=== PATIENT | male | born 1995 | race Caucasian/White ===

== ENCOUNTER → 2025-01-09 08:12 | Outpatient (CLI) | payer OTHER, SELFPAY ==
--- NOTE | 2025-01-09 08:16 | DI.RAD.S_ITS ---
PROCEDURE: FL ARTHROGRAM SHOULDER RT INDICATIONS: dislocation persistent pain COMPARISON: None. TECHNIQUE: The indications, alternatives, benefits, risks, and complications of the procedure were explained to the patient. Written informed consent was obtained and placed in the chart. The shoulder was examined fluoroscopically and a site for needle placement chosen for entry into the glenohumeral joint from an anterior approach. The skin was prepped and draped in a sterile fashion, and 1% lidocaine infiltrated from skin down to joint capsule. A spinal needle was inserted into the glenohumeral joint, and a small amount of iodinated contrast media injected to confirm intra-articular placement of the needle tip. This was followed by approximately 12 mL dilute solution of a gadolinium containing MR contrast agent. The needle was removed and a dressing was applied. The patient was given postprocedural instructions and sent to the MR suite for MR imaging. FINDINGS: A single fluoroscopic spot image demonstrates intra-articular location of injected iodinated contrast. IMPRESSION: Successful fluoroscopically guided administration of dilute Gadolinium solution into the shoulder joint for MR arthrogram. Dictated by: Drew Wagner M.D. on 01/09/2025 at 13:26 Approved by: Drew Wagner M.D. on 01/09/2025 at 13:26
--- NOTE | 2025-01-09 08:52 | DI.MRI.S_ITS ---
PROCEDURE: MR SHOULDER RT W CON INDICATIONS: dislocation persistent pain TECHNIQUE: After the administration of 12 mL of dilute intra-articular Gadolinium contrast, oblique coronal T1 and T2 spin echo with fat saturation, oblique sagittal T1 spin echo with and without fat saturation, oblique sagittal T2 fast spin echo with fat saturation, axial T1 spin echo with fat saturation through the shoulder. COMPARISON: None. FINDINGS: Image quality: Excellent. Rotator cuff: The supraspinatus, infraspinatus, teres minor, and subscapularis tendons are intact. No significant rotator cuff muscle atrophy. Bones and bursae: No acute trabecular bone injury or fracture. No significant Hill-Sachs lesion. No focal glenohumeral cartilage defect. Acromioclavicular joint is normally aligned. Small amounts of noncommunicating subacromial/subdeltoid bursal fluid. No intra-articular loose body. Capsule and soft tissues: No displaced labral tear. Proximal biceps long head tendon is intact. Glenohumeral ligaments are intact. IMPRESSION: 1. No acute trabecular bone injury. No significant rotator cuff tendon tear. Intact labrum and proximal biceps long head tendon. 2. Small subacromial/subdeltoid bursal effusion or mild bursitis. Approved by: Laurent Holley M.D. on 01/09/2025 at 15:45
== END ==
PROVIDERS: Referring Provider Internal Medicine; Visit Provider Internal Medicine
DX: S40.911A Unspecified superficial injury of right shoulder, initial encounter (principal); X58.XXXA Exposure to other specified factors, initial encounter
CPT/HCPCS: 23350; 73040; 73222; A9579; Q9967

== ENCOUNTER → 2025-01-16 08:38 | Outpatient (CLI) | payer OTHER, SELFPAY ==
--- NOTE | 2025-01-16 08:40 | DI.RAD.S_ITS ---
PROCEDURE: FL JOINT INJECTION LARGE RT shoulder INDICATIONS: Right shoulder pain COMPARISON: None. TECHNIQUE: The indications, alternatives, benefits, risks, and complications of the procedure were explained to the patient. Written informed consent was obtained and placed in the chart. The patient was placed in an appropriate position on the fluoroscopy table, and a site was chosen for percutaneous access under fluoroscopic guidance. The site was prepped and draped in a sterile fashion. Local anesthetic was administered using a 1% lidocaine solution. A hypodermic or spinal needle was then used to access the symptomatic joint. Intra-articular location of the needle tip was confirmed by injecting a small amount of contrast, followed by steroid administration. The needle was then withdrawn, and a bandage applied to the puncture site. FINDINGS: Joint injected: Right glenohumeral joint Medications injected: 8 mL of 40 mg/mL Kenalog and 0.5% Ropivacaine mixture. Patient's pain before injection: 4 out of 10. Patient's pain after injection: 2 out of 10. Complications: None. IMPRESSION: Successful fluoroscopically guided administration of steroid and anaesthetic solution into the right glenohumeral joint. Dictated by: Carlos Enrique Perez M.D. on 01/17/2025 at 9:25 Approved by: Carlos Enrique Perez M.D. on 01/17/2025 at 9:27
[2025-01-16] MEDS: LIDOCAINE 1% 20 ML INJ (10:05)
[2025-01-16] MEDS: TRIAMCINOLONE 40 MG/ML VIAL INTRA-ARTI (10:05)
[2025-01-16] MEDS: ROPIVACAINE 0.5% PF 5 MG/ML 20ML VIAL 20 ML INJ (10:05)
== END ==
LOC: RAD 08:39
PROVIDERS: Referring Provider Radiology Diagnostic Radiology; Visit Provider Radiology Diagnostic Radiology
DX: M25.511 Pain in right shoulder (principal)
CPT/HCPCS: 20610; 77002

== ENCOUNTER 2025-03-22 09:49 | Emergency (ER) | payer OTHER, SELFPAY ==
[2025-03-22] VITALS (7 sets, daily range): BP systolic 127; BP diastolic 83; PULSE 82–95; RESP 14–23; TEMP 36.9; O2SAT 96–100; BMI 27.4
--- NOTE | 2025-03-22 10:21 | DI.RAD.S_ITS ---
PROCEDURE: XR CHEST 1V INDICATIONS: Shortness of breath TECHNIQUE: One view of the chest was acquired. COMPARISON: None. FINDINGS: Surgical changes and devices: None. Lungs and pleura: Lungs are clear. No pleural effusions or pneumothorax. Mediastinum: Mediastinal contours appear normal. Heart size is normal. Bones and chest wall: No suspicious bony lesions. Overlying soft tissues appear unremarkable. IMPRESSION: No acute cardiopulmonary abnormality is seen. Dictated by: Marielos Vieira MD, PhD on 03/22/2025 at 10:40 Approved by: Marielos Vieira MD, PhD on 03/22/2025 at 10:40
--- NOTE | 2025-03-22 10:52 | EKG_ITS ---
[address] [address] Test Date: 2025-03-22 Pat Name: Adam Traylor Department: Room: Gender: Male Die Inspector: GRIFFIN : 1995 Requested By: Order Number: [id number] Reading MD: Deven Frazier Measurements Intervals [place] Rate: 87 P: 72 DE: 132 QRS: 31 QRSD: 86 T: 29 QT: 342 QTc: 411 Interpretive Statements Normal sinus rhythm Electronically Signed On 03-23-2025 13:45:26 PDT by Deven Frazier
[2025-03-22 10:54] LABS: Add Manual Diff / Slide Review NO; Hematocrit 41.0 % (41-53); Hemoglobin 14.9 g/dL (13.5-17.5); Lymphocytes Absolute Auto 1200 /uL (1100-4500); Mean Corpuscular HGB Conc 36.5 % (30-36); Mean Corpuscular Hemoglobin 32.1 PG (26-34); Mean Corpuscular Volume 87.9 fL (80-100); Platelet Count 238 X10^3/uL (150-400)
[2025-03-22 10:59] LABS: INR 1.2 (0.9-1.3); Prothrombin Time 13.3 SECONDS (9.4-12.5)
[2025-03-22 11:03] LABS: Alanine Aminotransferase 21 IU/L (<50); Albumin 5.1 g/dL (3.5-5.0); Albumin Globulin Ratio 1.2 (1.0-2.8); Alkaline Phosphatase 59 U/L (38-126); Blood Urea Nitrogen 11 mg/dL (9-20); Calcium 9.4 mg/dL (8.4-10.2); Carbon Dioxide 28 mmol/L (22-32); Chloride 102 mmol/L (98-107); Estimated Glomerular Filt Rate > 60 mL/min (>60); Globulin 4.3 g/dL (1.7-4.1); Glucose 92 mg/dL (70-99); HEMOLYSIS 24 (0-50); Potassium 4.0 mmol/L (3.4-5.1); Sodium 141 mmol/L (137-145); Total Protein 9.4 g/dL (6.3-8.2)
[2025-03-22 11:04] LABS: Lactate (Lactic Acid) 1.0 mmol/L (0.7-2.1)
[2025-03-22 11:15] LABS: NT-proBNP (BNP-Adult 18+) < 20 pg/mL (<125); Troponin I < 0.012 ng/mL (0.01-0.034)
--- NOTE | 2025-03-22 13:06 | ED.CHESTPAIN ---
HPI - Chest Pain General Chief Complaint: Shortness of Breath/Dyspnea Stated Complaint: SOB had shoulder surgery thursday joint pain Time Seen by Provider: 03/22/25 13:02 History of Present Illness HPI narrative: Patient recently had right upper extremity surgery. Now complaints couple of days of chest soreness burning sensation pain with deep breath. Also has left upper extremity discomfort and bilateral lower extremity discomfort. No prior history of heart attack strokes diabetes or blood clots in legs or lungs. Related Data Allergies Allergy/AdvReac Type Severity Reaction Status Date / Time No Known Drug Allergies Allergy Unverified 01/09/25 08:57 Review of Systems Review of Systems Narrative: GENERAL: Negative chills, fatigue, malaise, fever, sweats. HEENT: Negative sinus pain, ear pain, sore throat RESPIRATORY: Positive dyspnea, negative cough CARDIOVASCULAR: Positive chest pain, negative palpitations GASTROINTESTINAL: Negative vomiting, nausea, abdominal pain : Negative dysuria, frequency, hematuria MUSCULOSKELETAL: Positive muscle or bony pain SKIN: Negative rash, skin lesions NEUROLOGIC: Negative weakness, numbness ROS Unobtainable: All systems reviewed & are unremarkable except as noted in HPI and below Patient History Social History Smoking Status: Never smoker Smoking Status: Never smoker Exam Narrative Exam Narrative: GENERAL: in no distress, not toxic not dyspneic HEAD: Normocephalic. EYES: Pupils equal round ENT: Mucous membranes moist. NECK: Trachea midline. CARDIOVASCULAR: Regular rate and rhythm RESPIRATORY: Clear to auscultation. Breath sounds equal bilaterally. No wheezes, rales, or rhonchi. Reproducible sternal tenderness on palpation deep breath GASTROINTESTINAL: Abdomen soft, non-tender EXTREMITIES: No gross deformities. No palpable cords nontender bilateral calves and left biceps and forearm. BACK: No flank tenderness. NEURO: AOx4. Clear speech SKIN: Warm and dry PSYCH: Not anxious, is cooperative Initial Vital Signs Initial Vital Signs: Vital Signs Temperature 98.4 F 03/22/25 10:11 Pulse Rate 94 H 03/22/25 10:11 Respiratory Rate 16 03/22/25 10:11 Blood Pressure 127/83 03/22/25 10:11 Pulse Oximetry 96 03/22/25 10:11 Oxygen Delivery Method Room Air 03/22/25 10:11 Scores HEART Score Heart Score history: Slightly Suspicious Heart Score EKG: Normal Heart Score Age: < 45 years old Heart Score risk factors: No known risk factors Heart Score troponin: < or = to normal limit Heart Score Total: 0 Course Orders Ordered: Discontinued Medications Sodium Chloride (Normal Saline 0.9%) 1,000 mls @ 1,000 mls/hr IV BOLUS ONE Stop: 03/22/25 14:04 Last Infusion: 03/22/25 16:27 Dose: Infused Documented By: Admin: 03/22/25 13:40 Dose: 1,000 mls/hr Documented By: SB Ketorolac Tromethamine (Ketorolac 30 Mg/Ml Vial) 15 mg IV NOW ONE Stop: 03/22/25 15:47 Last Admin: 03/22/25 16:14 Dose: 15 mg Documented By: RB Vital Signs Vital signs: Vital Signs - 8 hr 03/22/25 10:11 03/22/25 13:34 03/22/25 14:00 Temperature 98.4 F Pulse Rate 94 H 82 88 Respiratory Rate 16 23 Blood Pressure 127/83 Pulse Oximetry 96 100 98 Oxygen Delivery Method Room Air 03/22/25 14:30 03/22/25 15:00 03/22/25 15:30 Temperature Pulse Rate 90 95 H 89 Respiratory Rate 23 14 21 Blood Pressure Pulse Oximetry 98 99 98 Oxygen Delivery Method 03/22/25 16:00 Temperature Pulse Rate 89 Respiratory Rate 17 Blood Pressure Pulse Oximetry 98 Oxygen Delivery Method MDM - Chest Pain Lab Data 03/22/25 10:40 03/22/25 10:40 Labs: Lab Results 03/22/25 Range/Units 10:40 WBC 5.5 (4.5-11.0) X10^3/uL RBC 4.66 (4.5-5.9) X10^6/uL Hgb 14.9 (13.5-17.5) g/dL Hct 41.0 (41-53) % MCV 87.9 (80-100) fL MCH 32.1 (26-34) PG MCHC 36.5 H (30-36) % RDW 12.6 (11.6-14.8) % Plt Count 238 (150-400) X10^3/uL Neut % (Auto) 68.8 (50-75) % Lymph % (Auto) 22.1 L (25-40) % [place] % (Auto) 7.6 (3-14) % Eos % (Auto) 1.0 L (2-4) % Baso % (Auto) 0.5 (0-2) % Neut # (Auto) 3800 (6075-5389) /uL Lymph # (Auto) 1200 (3500-5482) /uL [place] # (Auto) 400 (0-900) /uL Eos # (Auto) 100 (0-450) /uL Baso # (Auto) 0 (0-100) /uL PT 13.3 H (9.4-12.5) SECONDS INR 1.2 (0.9-1.3) Sodium 141 (137-145) mmol/L Potassium 4.0 (3.4-5.1) mmol/L Chloride 102 (98-107) mmol/L Carbon Dioxide 28 (22-32) mmol/L BUN 11 (9-20) mg/dL Creatinine 1.04 (0.66-1.25) mg/dL Estimated GFR > 60 (>60) mL/min BUN/Creatinine Ratio 10.6 (6-22) Glucose 92 (70-99) mg/dL Lactate 1.0 (0.7-2.1) mmol/L Calcium 9.4 (8.4-10.2) mg/dL Total Bilirubin 1.1 (0.2-1.3) mg/dL AST 29 (17-59) IU/L ALT 21 (<50) IU/L Alkaline Phosphatase 59 (38-126) U/L Troponin I < 0.012 (0.01-0.034) ng/mL NT-Pro-B Natriuret Pep < 20 (<125) pg/mL Total Protein 9.4 H (6.3-8.2) g/dL Albumin 5.1 H (3.5-5.0) g/dL Globulin 4.3 H (1.7-4.1) g/dL Albumin/Globulin Ratio 1.2 (1.0-2.8) Imaging Data Extremity x-ray #1: Radiologist's Impression: [address] [address] Ultrasound Report Signed Patient: Adam Traylor MR#: [id number] : 1995 Acct:[id number] Age/Sex: 29 / M Date of Service: 03/22/25 Loc: ED Accession Number: [id number] Procedure: US periph venous low extrem bi Ordering Provider: Kel Weiss MD PROCEDURE: [facility] VENOUS LOW EXTREM BI INDICATIONS: Pain and swelling TECHNIQUE: Real-time imaging, as well as color and pulse Doppler interrogation, were performed of the deep veins of both legs from the inguinal ligament to the popliteal fossa, with documentation of the visualized calf veins. COMPARISON: None. FINDINGS: Right: The common femoral, femoral, popliteal, and the visualized calf veins are normally compressible, and free of intraluminal thrombus. Color and pulse Doppler demonstrate normal phasic intravascular flow. There is normal augmentation response to distal compression maneuver. Left: The common femoral, femoral, popliteal, and the visualized calf veins are normally compressible, and free of intraluminal thrombus. Color and pulse Doppler demonstrate normal phasic intravascular flow. There is normal augmentation response to distal compression maneuver. IMPRESSION: No findings of deep venous thrombosis in either lower extremity. Dictated by: Tony Murphy M.D. on 03/22/2025 at 13:41 Approved by: Tony Murphy M.D. on 03/22/2025 at 13:43 Extremity x-ray #2: Radiologist's Impression: [place] [address] Ultrasound Report Signed Patient: Adam Traylor MR#: [id number] : 1995 Acct:[id number] Age/Sex: 29 / M Date of Service: 03/22/25 Loc: ED Accession Number: [id number] Procedure: [facility] venous up extrem lt Ordering Provider: Kel Weiss MD PROCEDURE: [facility] VENOUS UP EXTREM LT INDICATIONS: Pain and swelling TECHNIQUE: Real-time imaging, as well as color and pulse Doppler interrogation, was performed of the upper extremity deep veins from the inferior neck to the antecubital fossa. COMPARISON: None. FINDINGS: The internal jugular vein, visualized portions of the subclavian vein, axillary, and brachial veins are free of intraluminal thrombus. Where physically possible, the veins are normally compressible. Color and pulse Doppler demonstrate normal intraluminal flow, with expected phasicity and pulsatility. Additional scanning of the cephalic and basilic veins of the superficial system demonstrates normal compressibility, without thrombus. IMPRESSION: No findings of upper extremity deep venous thrombosis can be seen. Dictated by: Tony Murphy M.D. on 03/22/2025 at 13:27 Approved by: Tony Murphy M.D. on 03/22/2025 at 13:32 Chest x-ray: Radiologist's Impression: [address] [address] XRay Report Signed Patient: Adam Traylor MR#: [id number] : 1995 Acct:[id number] Age/Sex: 29 / M Date of Service: 03/22/25 Loc: ED Accession Number: [id number] Procedure: XR chest 1V Ordering Provider: Kel Weiss MD PROCEDURE: XR CHEST 1V INDICATIONS: Shortness of breath TECHNIQUE: One view of the chest was acquired. COMPARISON: None. FINDINGS: Surgical changes and devices: None. Lungs and pleura: Lungs are clear. No pleural effusions or pneumothorax. Mediastinum: Mediastinal contours appear normal. Heart size is normal. Bones and chest wall: No suspicious bony lesions. Overlying soft tissues appear unremarkable. IMPRESSION: No acute cardiopulmonary abnormality is seen. Dictated by: Marielos Vieira MD, PhD on 03/22/2025 at 10:40 Approved by: Marielos Vieira MD, PhD on 03/22/2025 at 10:40 CT scan - chest: Radiologist's Impression: [address] [address] [address] Scan Report Signed Patient: Adam Traylor MR#: [id number] : 1995 Acct:[id number] Age/Sex: 29 / M Date of Service: 03/22/25 Loc: ED Accession Number: [id number] Procedure: CT angio chest PE protocol Ordering Provider: Kel Weiss MD PROCEDURE: CT ANGIO CHEST PE PROTOCOL INDICATIONS: Chest pain TECHNIQUE: After the administration of intravenous contrast, 2 mm thick sections acquired from the pulmonary apices to the posterior costophrenic angles. 3-dimensional maximum intensity projection (MIP) coronal and sagittal reformats were then acquired through the thorax. For radiation dose reduction, the following was used: automated exposure control, adjustment of mA and/or kV according to patient size. COMPARISON: None. FINDINGS: Image quality: Diagnostic. Pulmonary arteries: Pulmonary arteries are normal in size, and demonstrate no intraluminal filling defects to suggest central pulmonary embolism. Lower Neck: No enlarged lymph nodes. Thyroid: No thyroid nodules which require sonographic follow up, per consensus guidelines. Axillae: No enlarged lymph nodes. Chest Wall: Unremarkable. Bones: Unremarkable. Lungs and Pleura: No pneumothorax or pleural effusions. No consolidation or suspicious nodules. Heart: Heart size is normal. No pericardial effusion. Thoracic Vessels: No aortic aneurysm. Mediastinum and [place]: No enlarged lymph nodes. Esophagus: No wall thickening. No hiatal hernia. Upper Abdomen: Visualized upper abdomen solid organs and bowel loops appear normal. IMPRESSION: No pulmonary embolus. No acute cardiopulmonary process. Dictated by: Robb Rubin M.D. on 03/22/2025 at 13:28 Approved by: Robb Rubin M.D. on 03/22/2025 at 13:30 [facility] Narrative Medical decision making narrative: Patient recently had right upper extremity surgery. Now complaints couple of days of chest soreness burning sensation pain with deep breath. Also has left upper extremity discomfort and bilateral lower extremity discomfort. No prior history of heart attack strokes diabetes or blood clots in legs or lungs After history and exam, EKG CBC CMP chest x-ray troponin extremity Dopplers, CT chest [facility] Medical records reviewed: No recent visit for this complaint Differential considered: Includes but not limited to pneumothorax pleurisy costochondritis pulmonary embolism Lab Test results independently reviewed as above. Pertinent findings: Hemoglobin 14.9 INR 1.2 BUN 11 creatinine 1.04 troponin less than 0.012 BNP less than 20 Independently reviewed EKG normal sinus rhythm normal EKG rate 87 Imaging studies independently reviewed: Chest x-ray no acute finding CT chest no acute finding ultrasound of the limbs no DVT Consultations: None indicated at this time Re-evaluations: 4:08 p.m.. Updated patient results. They are reassuring results and on exam as well. Likely pleurisy/costochondritis causing his chest discomfort. Return precautions reviewed with patient. Not toxic at discharge. He desires discharge home. Discussion: Appropriate for discharge home. Exam is reassuring. Return precautions reviewed with patient. Symptoms likely costochondritis or pleurisy. Limb complaints nonspecific but results are reassuring. Return precautions reviewed and he desires discharge home. Patient has low heart score. No primary family history of coronary disease. No history of hypertension or hyperlipidemia. Diagnosis: Dyspnea Discharge Plan Departure Patient Disposition: Home Clinical Impression: Acute dyspnea Instructions: DI for Pleurisy, DI for Shortness of Breath Activity Restrictions/Additional Instructions: Your exam and laboratory studies imaging studies are reassuring. No new prescriptions are indicated. These symptoms may be effects left from your surgery from last week. Please do see your family doctor within a week for re-evaluation. Return if worse if any questions or concerns Referrals: ProviderOniel [Primary Care Provider, Family Practice] Stand Alone Forms: Patient Portal/API
[2025-03-22] MEDS: SODIUM CHLORIDE 0.9% 1,000 ML 1000 ML IV (13:40)
[2025-03-22] MEDS: KETOROLAC 30 MG/ML VIAL 15 MG IV (16:14)
== END 2025-03-22 16:29 | disposition home or self-care (01) ==
PROVIDERS: Emergency Provider Emergency Medicine
DX: R06.00 Dyspnea, unspecified (principal); R07.9 Chest pain, unspecified; M79.602 Pain in left arm; M79.605 Pain in left leg; M79.604 Pain in right leg; Z98.890 Other specified postprocedural states
CPT/HCPCS: 36415; 71045; 71275; 80053; 83605; 83880; 84484; 85025; 85610; 93005; 93970; 93971; 96361; 96374; 99284; J1885; Q9967

== ENCOUNTER → 2025-05-29 07:44 | Outpatient (CLI) | payer OTHER, SELFPAY ==
--- NOTE | 2025-05-29 07:46 | DI.MRI.S_ITS ---
PROCEDURE: MR SHOULDER RT WO CON INDICATIONS: pain in right shoulder TECHNIQUE: Noncontrast oblique coronal T2 fast spin echo with fat saturation, oblique sagittal T1 spin echo and T2 fast spin echo with fat saturation, axial T1 spin echo and T2 fast spin echo with fat saturation through the shoulder. COMPARISON: [facility], MR, MR SHOULDER RT W CON, 01/09/2025, 8:36. FINDINGS: Quality: Adequate. Tendons: Rotator cuff tendons: Less than 25 percent thickness bursal sided insertional tearing of the supraspinatus tendon. Subscapularis, infraspinatus and teres minor tendons are unremarkable. Long head of biceps tendon: Status post tenodesis with susceptibility artifact in the proximal humeral diaphysis from postsurgical change. Muscles: No disproportionate fatty degeneration of the rotator cuff musculature. Acromioclavicular joint: Unremarkable. Glenohumeral joint: Labrum: Unremarkable. Cartilage: No focal defect. Fluid: No effusion. Capsule: No pericapsular inflammation or scarring. Alignment: No dislocation. Bursa: Subacromial/subdeltoid bursa: Nondistended. Subcoracoid bursa: Distended with synovitis. Bones: No fracture. IMPRESSION: Low-grade partial-thickness bursal sided supraspinatus tendon tear Subacromial/subdeltoid bursitis. Dictated by: Seamus Evans M.D. on 05/30/2025 at 9:19 Approved by: Seamus Evans M.D. on 05/30/2025 at 9:24
== END ==
LOC: MRI 07:45
DX: M75.111 Incomplete rotator cuff tear or rupture of right shoulder, not specified as traumatic (principal); M25.511 Pain in right shoulder; M75.51 Bursitis of right shoulder
CPT/HCPCS: 73221